=== PATIENT | male | born 1990 | race Two or more races ===

== ENCOUNTER 2019-08-07 10:21 | Emergency (ER) | payer SELFPAY ==
[~2019-08-07] VITALS: Ht 175.3 cm; Wt 82.6 kg
[2019-08-07 10:51] VITALS: BP 126/59
[2019-08-07] MEDS ORDERED: HYDROcodone-ACET 5/325MG TAB PO ONE (11:30)
[2019-08-07] MEDS ORDERED: TETANUS-DIPTH-ACEL PERTUSSIS 0.5ML SYR Tdap IM ONE (11:30)
== END 2019-08-07 12:34 | disposition home or self-care (01) ==
LOC: ER 10:21
DX: S01.01XA Laceration without foreign body of scalp, initial encounter (principal); S30.810A Abrasion of lower back and pelvis, initial encounter; W22.8XXA Striking against or struck by other objects, initial encounter; Y93.89 Activity, other specified; Y92.89 Other specified places as the place of occurrence of the external cause; Y99.8 Other external cause status
CPT/HCPCS: 12002; 70450; 90471; 90715

== ENCOUNTER 2019-08-17 13:41 | Emergency (ER) | payer SELFPAY ==
[~2019-08-17] VITALS: Ht 175.3 cm; Wt 85.7 kg
[2019-08-17 15:24] VITALS: BP 141/75
== END 2019-08-17 16:00 | disposition home or self-care (01) ==
LOC: ER 13:41
DX: S09.8XXD Other specified injuries of head, subsequent encounter (principal); X58.XXXD Exposure to other specified factors, subsequent encounter

== ENCOUNTER 2021-12-01 19:51 | Emergency (ER) | payer MEDICAID, OTHER ==
[~2021-12-01] VITALS: Ht 175.3 cm; Wt 80.0 kg
[2021-12-01 23:03] VITALS: BP 128/68
[2021-12-02] MEDS ORDERED: HYDR-4902 PO (00:10)
[2021-12-02] MEDS ORDERED: KETOROLAC TROMETH 60MG/2ML VIAL IM ONE (00:15)
== END 2021-12-02 00:43 | disposition home or self-care (01) ==
LOC: ER 19:55
DX: K08.89 Other specified disorders of teeth and supporting structures (principal); F17.210 Nicotine dependence, cigarettes, uncomplicated; F12.10 Cannabis abuse, uncomplicated
CPT/HCPCS: 96372; 99283; J1885